=== PATIENT | female | born 1965 | race Caucasian/White ===

== ENCOUNTER 2021-02-15 13:48 | Emergency (ER) | payer OTHER, SELFPAY ==
--- NOTE | ~2021-02-15 | XR_ITS ---
EXAMINATION: XR chest 2V DATE: 02/15/2021 14:21 INDICATION: Cough TECHNIQUE: PA and lateral views of the chest were obtained. COMPARISON: Chest radiograph dated 10/12/2017 FINDINGS: Unchanged perihilar mild bronchial wall thickening. New approximately 2 cm nodular opacity projecting over the heart on the lateral projection, unclear whether left or right-sided. No pulmonary edema, p leural effusion or pneumothorax. The cardiomediastinal silhouette is normal. Mild thoracic spondylos is. IMPRESSION: 1. New 2 cm nodular opacity projecting over the heart on the lateral projection, unclear whether left right-sided. Recommend chest CT for further evaluation. 2. Chronic mild perihilar bronchial wall thickening which could be due to bronchitis or reactive airw ay disease/asthma Reviewed, dictated and finalized at location [facility]. [employer] IMPRESSION: 1. New 2 cm nodular opacity projecting over the heart on the lateral projection , unclear whether left right-sided. Recommend chest CT for further evaluation. 2. Chronic mild perihilar bronchial wall thickening which could be due to bronc hitis or reactive airway disease/asthma
--- NOTE | 2021-02-15 13:59 | ED.URI ---
HPI - URI/Sore Throat General Chief Complaint: Upper Respiratory Infection Stated Complaint: Cough, sore throat, congestion. Time Seen by Provider: 02/15/21 13:59 Source: patient and RN notes reviewed History of Present Illness HPI Narrative: Patient is a 44-year-old female who presents the urgent care with complaints of chest congestion and cough. Patient states it has been ongoing for approximately 1 week and she did have a negative Covid test last . Patient states that she has been taking DayQuil, NyQuil, ibuprofen, Robitussin, Delsym and [id number] cough pills without much symptom relief. Patient denies of any shortness of breath or chest pain. Denies any fever, chills, nausea, vomiting. No other acute complaints. No acute distress noted. Patient read the plan of care. Some parts of this dictation were generated by voice recognition software and may contain typographical and/or grammatical inaccuracies. Related Data Allergies Allergy/AdvReac Type Severity Reaction Status Date / Time No Known Allergies Allergy Unverified 02/02/18 23:25 Review of Systems Review of Systems: CONSTITUTIONAL: Denies fever, chills, or sweats. EYES: Denies visual changes, redness, or discharge. ENT: Reports of rhinorrhea and nasal congestion with postnasal drainage CARDIOVASCULAR: Denies chest pain, palpitations, or edema. RESPIRATORY: Reports of cough and chest congestion GASTROINTESTINAL: Denies abdominal pain, nausea, vomiting, or diarrhea. GENITOURINARY: Denies dysuria or hematuria. SKIN: Denies rash or itching. MUSCULOSKELETAL: Denies back pain, joint pain, or myalgia. NEUROLOGIC: Denies headache, numbness, or weakness. All other systems reviewed are negative, except as documented in HPI. PMFSH Comments At the time of my signature, I reviewed and agree with the nursing past medical, surgical, social, and family history. There is no relevant family history pertinent to the patient complaint. Exam Narrative: GENERAL: This is a well-nourished, well-developed patient, in no apparent distress. HEAD: normocephalic, atraumatic. EYES: PERRL. Sclera clear/white. Vision is grossly intact. EARS: External ears normal, auditory canals clear and without drainage, TMs normal without perforation. Hearing grossly intact. NOSE: External nose normal with no obvious nasal discharge. Bilateral erythemic nares with clear to yellow rhinorrhea THROAT: Mucous membranes moist, posterior pharynx clear. Moderate postnasal drainage NECK: Neck supple CARDIOVASCULAR: Regular rate and rhythm without murmurs, gallops, or rubs. RESPIRATORY: Moderate inspiratory and expiratory wheezes throughout SKIN: warm, intact with no suspicious lesions or rash, good texture and turgor. NEURO: awake, alert, and oriented to person, place and time. There were no obvious focal neurologic abnormalities. EXTREMITIES: No clubbing, cyanosis, or edema. Course Course Level of Care: Express Care Visit Vital Signs Vital signs: Vital Signs Temperature 98.4 F 02/15/21 14:02 Pulse Rate 92 02/15/21 14:02 Respiratory Rate 16 02/15/21 14:02 Blood Pressure 133/86 02/15/21 14:02 Pulse Oximetry 99 02/15/21 14:02 Temperature 98.4 F 02/15/21 14:02 Pulse Rate 92 02/15/21 14:02 Respiratory Rate 16 02/15/21 14:02 Blood Pressure 133/86 02/15/21 14:02 Pulse Oximetry 99 02/15/21 14:02 Reviewed MDM - URI/Sore Throat MDM Narrative Medical decision making narrative: Reviewed x-ray results with the patient. She is aware that chest x-ray was abnormal showing a 2 cm nodule. Also shows chronic bronchitis/air space disease. Based on your current presentation, will treat with steroids and antibiotics. Advised the patient to complete the medication as prescribed. Be sure to eat and drink with the medication. Use an inhaler as needed for shortness of breath, wheezing. If you develop any increase in symptoms associated with difficulty breathing or chest pain?go
[2021-02-15 14:02] VITALS: BP 133/86; PULSE 92; RESP 16; TEMP 36.9; O2SAT 99
== END 2021-02-15 14:59 | disposition home or self-care (01) ==
PROVIDERS: Emergency Provider Nurse Practitioner Family
DX: J40 Bronchitis, not specified as acute or chronic (principal); R94.31 Abnormal electrocardiogram [ECG] [EKG]
CPT/HCPCS: 71046; 99203; G0463